=== PATIENT | female | born 1970 | race Caucasian/White ===

== ENCOUNTER 2023-02-12 14:55 | Emergency (ER) | payer OTHER, SELFPAY ==
[2023-02-12 15:05] VITALS: BP 132/95; PULSE 88; RESP 18; TEMP 36.7; O2SAT 100
--- NOTE | 2023-02-12 15:38 | ED.EAR ---
HPI - Ear Problem General Chief complaint: Ear Stated complaint: Ear Pain Time Seen by Provider: 02/12/23 15:38 Source: patient, RN notes reviewed and old records reviewed Mode of arrival: ambulatory Limitations: no limitations History of Present Illness HPI Narrative: 53year old female who presents to [facility] with complaints of ear pain bilaterally, with pressure also and sinus congestion with drainage for the past 3-4 weeks. Patient reports that she took a part of a left over Z pack and it did get better for a few days but no [place] to her ears bilaterally is severe. Patient reports that her ears are throbbing rates her pain 01/14. Patient reports that she has been taking some Ibuprofen and also Tylenol for her discomfort. MD Complaint: ear pain Location: bilateral Discharge from ear: Reports no Treatment prior to arrival: oral analgesic and other (left over Z pack 4 tabs) Related Data Home Medications Medication Instructions Recorded Confirmed clonazepam 0.5 mg tablet mg 02/12/23 diltiazem HCl 240 mg mg PO 02/12/23 capsule,extended release 24 hr, controlled (DILT-XR) norethindrone 1 mg-ethinyl tablet 02/12/23 estradiol 10 mcg (24)-iron 10 mcg(2) tablet (Lo Loestrin Fe) Allergies Allergy/AdvReac Type Severity Reaction Status Date / Time codeine Allergy Unknown Verified 02/12/23 15:35 Penicillins Allergy Unknown Verified 02/12/23 15:35 Review of Systems Review of Systems: CONSTITUTIONAL: Denies malaise, chills, sweats, or fever. EYES: Denies visual changes, redness, or discharge. ENT: Reports rhinorrhea, congestion, sinus pain, bilateral otalgia andno sore throat. CARDIOVASCULAR: Denies chest pain, palpitations, or edema. RESPIRATORY: Reports no cough.? Denies dyspnea. GASTROINTESTINAL: Denies abdominal pain, nausea, vomiting, diarrhea SKIN: Denies rash or itching. MUSCULOSKELETAL: Denies myalgia. NEUROLOGIC: Denies headache. All systems reviewed & are unremarkable except as noted in HPI and below PMFSH Past Medical History Medical History (Updated 02/13/23 @ 09:38 by Genie Palumbo NP) Anxiety Hypertension Surgical History Surgical History (Updated 02/13/23 @ 09:36 by Genie Palumbo NP) History of facial surgery plastic repair from dog bite Hx of breast reduction, elective Hx of cholecystectomy Hx of removal of ovary Previous section Social History Social History (Updated 02/13/23 @ 09:36 by Genie Palumbo NP) Smoking status: Never smoker Alcohol intake: current Alcohol use details: social Substance use type: does not use Living arrangements: with family Gender identity (if verbalized by the patient): Female Comments At time of signature, agree with nursing past medical, surgical, social and family history. There is no relevant family history pertinent to the presenting complaint Exam Narrative: GENERAL: Well-appearing, well-nourished, and in no acute distress. HEAD: Normocephalic EYES: PERRLA, conjunctivae clear ENT: Nares clear, turbinates edematous and erythematous, clear discharge. Mucous membranes moist.Left TM red and bulging, Right TM pearly nicholas with dull light reflex bilaterally; no tragal tenderness. Oropharynx erythematous without lesions. Tonsils not enlarged and without exudate, no drooling, no hoarseness, no trismus, uvula midline.post nasal drainage NECK: Supple. No lymphadenopathy CHEST: Clear to auscultation, breath sounds equal. No wheezing, rhonchi, rales, or stridor. No respiratory distress, speaks in full sentences.no cough noted HEART: Regular rate and rhythm. No murmur heard. SAO2 100% on room air SKIN: Warm, dry, no rash. NEURO: Alert and oriented x3. PSYCH: Normal mood and affect Course Course Emergency Course: Patient is aware of diagnosis, understands and agrees to treatment plan.? Anticipatory guidance given.? Patient agrees to follow-up as directed and is aware of reas
== END 2023-02-12 15:50 | disposition home or self-care (01) ==
PROVIDERS: Emergency Provider Registered Nurse
DX: H66.92 Otitis media, unspecified, left ear (principal); I10 Essential (primary) hypertension
CPT/HCPCS: 99213; G0463